=== PATIENT | female | born 1985 | race Caucasian/White ===

== ENCOUNTER 2016-11-23 20:00 | Emergency (ER) | payer OTHER ==
[~2016-11-23] VITALS: Ht 170.2 cm; Wt 95.0 kg
[~2016-11-23 20:00] MED LIST: AMOX/K CLAV875 M1 PO; AURALGAN OT; CEFUROXIME250 MG PO; FLOXIN OTIC0.3 % OT; LORTAB 1010 MG PO; NAPROSYN500 MG PO; NEOMYCIN/POLYMY1 SOL
[2016-11-23] MEDS ORDERED: PROTONIX40 M2 PO (20:22)
[2016-11-23] MEDS ORDERED: RANITIDINE150 M1 PO (20:23)
[2016-11-23] MEDS ORDERED: VITAMIN D350000 UNIT PO (20:24)
[2016-11-23 20:40] LABS: HEMATOCRIT 41.6 % (37.0-47.0); HEMOGLOBIN 14.6 g/dl (12.0-16.0); IMMATURE GRANULOCYTES 0.5 % (0.0-1.0); MEAN CORPUSCULAR HGB 31.6 pG CALC (26.0-32.0); MEAN CORPUSCULAR HGB CONC 35.1 g/L CALC (32.0-36.0); NEUT# 6.58 thou/uL (2.00-7.15); RED BLOOD COUNT 4.62 mill/uL (4.20-5.60); RED CELL DISTRI WIDTH 11.9 % (11.5-15.5)
[2016-11-23 20:55] LABS: ALBUMIN 4.6 g/dL (3.2-5.0); ALKALINE PHOSPHATASE 80 u/l (38-126); ANION GAP 17 (6-22 (CALC)); BILIRUBIN, TOTAL 0.3 mg/dL (0.0-1.4); BUN 12 mg/dL (7-17); BUN/CREATININE RATIO 14 (12-20 (CALC)); CALCIUM 9.4 mg/dL (8.4-10.2); CARBON DIOXIDE 24 mmol/l (22-30); CHLORIDE 104 mmol/l (95-108); CREATININE 0.9 mg/dL (0.5-1.0); GFR > 60 ML/MIN (>=60 (CALC)); GFR FOR AFR.AMER. > 60 ML/MIN (>=60 (CALC)); GLUCOSE 112 mg/dL (65-105); SGOT/AST 19 u/l (14-36); SGPT/ALT 43 u/l (9-52); SODIUM 141 mmol/l (137-146); TOTAL PROTEIN 7.8 g/dL (6.3-8.2)
[2016-11-23 20:59] LABS: PROTHROMBIN TIME 10.5 SECONDS (9.0-12.5)
[2016-11-23 21:06] LABS: MYOGLOBIN 23 ng/mL (0 - 62)
[2016-11-23 21:28] LABS: URINE BILIRUBIN - DIPSTICK NEGATIVE (NEGATIVE); URINE BLOOD DIPSTICK NEGATIVE (NEGATIVE); URINE CLARITY CLEAR; URINE COLOR YELLOW; URINE GLUCOSE - DIPSTICK NEGATIVE (NEGATIVE); URINE KETONE NEGATIVE (NEGATIVE); URINE LEUK ESTERASE NEGATIVE (NEGATIVE); URINE NITRITE - DIPSTICK NEGATIVE (Negative); URINE PROTEIN - DIPSTICK NEGATIVE (NEG-TRACE); URINE UROBILINOGEN - DIPSTICK 0.2 E.U./dL (0.2)
[2016-11-23 23:05] VITALS: BP 96/56
== END 2016-11-23 23:10 | disposition left against medical advice (07) | DRG 313 ==
LOC: ED 20:00
PROVIDERS: Emergency Medicine
DX: R07.9 Chest pain, unspecified (principal); F41.9 Anxiety disorder, unspecified; K21.9 Gastro-esophageal reflux disease without esophagitis; Z91.19 Patient's noncompliance with other medical treatment and regimen

== ENCOUNTER 2019-04-24 | Emergency (ER) | payer OTHER ==
[~2019-04-24] MED LIST changes: +PROTONIX40 M2 PO; +RANITIDINE150 M1 PO; +VITAMIN D350000 UNIT PO
== END 2019-04-24 21:15 | disposition home or self-care (01) | DRG 605 ==
DX: S90.02XA Contusion of left ankle, initial encounter (principal); S90.01XA Contusion of right ankle, initial encounter; S90.32XA Contusion of left foot, initial encounter; S90.31XA Contusion of right foot, initial encounter; W01.0XXA Fall on same level from slipping, tripping and stumbling without subsequent striking against object, initial encounter; Y92.481 Parking lot as the place of occurrence of the external cause

== ENCOUNTER 2019-10-13 14:57 | Emergency (ER) | payer OTHER ==
[~2019-10-13] VITALS: Ht 170.2 cm; Wt 100.0 kg
[2019-10-13 16:55] LABS: HCG SERUM/URINE (NEG/POS) NEGATIVE (NEGATIVE)
[2019-10-13] MEDS ORDERED: ALPRAZOLAM1 MG PO (16:56)
[2019-10-13] MEDS ORDERED: OMEPRAZOLE DR40 MG PO (16:57)
[2019-10-13] MEDS ORDERED: AMOX/K CLAV875 M1 PO (17:56)
[2019-10-13] MEDS ORDERED: VENTOLIN HFA IN (17:56)
[2019-10-13] MEDS ORDERED: ZITHROMAX250 MG PO (17:56)
[2019-10-13 18:00] VITALS: BP 95/58
== END 2019-10-13 18:07 | disposition home or self-care (01) | DRG 203 ==
LOC: ED 14:57
DX: J40 Bronchitis, not specified as acute or chronic (principal); J32.9 Chronic sinusitis, unspecified; Z20.828 Contact with and (suspected) exposure to other viral communicable diseases

== ENCOUNTER 2020-03-23 17:13 | Emergency (ER) | payer OTHER ==
[~2020-03-23] VITALS: Ht 170.2 cm; Wt 93.2 kg
[~2020-03-23 17:13] MED LIST changes: +ALPRAZOLAM1 MG PO; +OMEPRAZOLE DR40 MG PO; +VENTOLIN HFA IN; +ZITHROMAX250 MG PO
[2020-03-23] MEDS ORDERED: CARAFATE1 GM PO (17:38)
[2020-03-23 18:37] VITALS: BP 146/67
== END 2020-03-23 18:41 | disposition home or self-care (01) | DRG 538 ==
LOC: ED 17:13
DX: S76.911A Strain of unspecified muscles, fascia and tendons at thigh level, right thigh, initial encounter (principal); F41.9 Anxiety disorder, unspecified; W22.09XA Striking against other stationary object, initial encounter; Y92.89 Other specified places as the place of occurrence of the external cause; Y99.0 Civilian activity done for income or pay

== ENCOUNTER 2020-06-13 07:18 | Emergency (ER) | payer OTHER ==
[~2020-06-13] VITALS: Ht 170.2 cm; Wt 93.0 kg
[~2020-06-13 07:18] MED LIST changes: +CARAFATE1 GM PO
[2020-06-13 07:59] LABS: HEMOGLOBIN 14.6 g/dl (12.0-16.0); IMMATURE GRANULOCYTES 0.1 % (0.0-5.0); MEAN CELL VOLUME 90.7 fL CALC (80.0-100.0); MEAN CORPUSCULAR HGB 30.8 pG CALC (26.0-32.0); NEUT# 3.84 thou/uL (2.00-7.15); RED BLOOD COUNT 4.74 mill/uL (4.20-5.60); RED CELL DISTRI WIDTH 11.8 % (11.5-15.5)
[2020-06-13 08:03] LABS: ALBUMIN 4.8 g/dL (3.2-5.0); ALKALINE PHOSPHATASE 67 u/l (38-126); ANION GAP 16 (6-22 (CALC)); BUN 10 mg/dL (7-17); BUN/CREATININE RATIO 14 (12-20 (CALC)); CARBON DIOXIDE 23 mmol/l (22-30); CHLORIDE 102 mmol/l (95-108); CREATININE 0.7 mg/dL (0.5-1.0); GFR > 60 ML/MIN (>=60 (CALC)); GFR FOR AFR.AMER. > 60 ML/MIN (>=60 (CALC)); POTASSIUM 3.9 mmol/l (3.5-5.1); SGOT/AST 24 u/l (14-36); SODIUM 137 mmol/l (137-146); TOTAL PROTEIN 7.7 g/dL (6.3-8.2)
[2020-06-13 08:11] LABS: BILIRUBIN, TOTAL 0.9 mg/dL (0.0-1.4)
[2020-06-13 08:16] LABS: MYOGLOBIN 16 ng/mL (0 - 62)
[2020-06-13 08:20] LABS: URINE BILIRUBIN - DIPSTICK NEGATIVE (NEGATIVE); URINE BLOOD DIPSTICK NEGATIVE (NEGATIVE); URINE COLOR YELLOW; URINE GLUCOSE - DIPSTICK NEGATIVE (NEGATIVE); URINE KETONE NEGATIVE (NEGATIVE); URINE LEUK ESTERASE NEGATIVE (NEGATIVE); URINE NITRITE - DIPSTICK NEGATIVE (Negative); URINE PROTEIN - DIPSTICK NEGATIVE (NEG-TRACE); URINE SPECIFIC GRAVITY 1.015; URINE UROBILINOGEN - DIPSTICK 0.2 E.U./dL (0.2)
[2020-06-13] MEDS ORDERED: DEXILANT60 MG PO (08:33)
[2020-06-13] MEDS ORDERED: PAROXETINE10 MG PO (08:33)
[2020-06-13] MEDS ORDERED: LORAZEPAM0.5 MG PO (08:34)
[2020-06-13 08:35] LABS: TSH, 3RD GENERATION 2.09 uIU/mL (0.47 - 4.68)
[2020-06-13 08:55] VITALS: BP 116/68
== END 2020-06-13 08:55 | disposition home or self-care (01) | DRG 880 ==
LOC: ED 07:18
PROVIDERS: Emergency Medicine
DX: F41.9 Anxiety disorder, unspecified (principal); K21.9 Gastro-esophageal reflux disease without esophagitis

== ENCOUNTER 2020-11-06 20:53 | Emergency (ER) | payer OTHER ==
[~2020-11-06] VITALS: Ht 172.7 cm; Wt 97.7 kg
[~2020-11-06 20:53] MED LIST changes: +DEXILANT60 MG PO; +LORAZEPAM0.5 MG PO; +PAROXETINE10 MG PO
[2020-11-06] MEDS ORDERED: ESCITALOPRAM OX10 MG PO (21:21)
[2020-11-06] MEDS ORDERED: AUGMENTIN500TAB PO (21:21)
[2020-11-06 21:29] LABS: HEMATOCRIT 41.9 % (37.0-47.0); IMMATURE GRANULOCYTES 0.2 % (0.0-5.0); MEAN CELL VOLUME 93.9 fL CALC (80.0-100.0); MEAN CORPUSCULAR HGB 31.4 pG CALC (26.0-32.0); MEAN CORPUSCULAR HGB CONC 33.4 g/dL CAL (32.0-36.0); NEUT# 4.58 thou/uL (2.00-7.15); RED BLOOD COUNT 4.46 mill/uL (4.20-5.60); RED CELL DISTRI WIDTH 11.9 % (11.5-15.5)
[2020-11-06 21:37] LABS: ALBUMIN 4.4 g/dL (3.2-5.0); ALKALINE PHOSPHATASE 70 u/l (38-126); AMYLASE 82 u/l (30-110); ANION GAP 12 (6-22 (CALC)); BILIRUBIN, TOTAL 0.5 mg/dL (0.0-1.4); BUN 15 mg/dL (7-17); BUN/CREATININE RATIO 18 (12-20 (CALC)); CARBON DIOXIDE 27 mmol/l (22-30); CHLORIDE 101 mmol/l (95-108); CREATININE 0.9 mg/dL (0.5-1.0); GFR > 60 ML/MIN (>=60 (CALC)); GFR FOR AFR.AMER. > 60 ML/MIN (>=60 (CALC)); LIPASE 125 u/l (23-300); POTASSIUM 3.9 mmol/l (3.5-5.1); SGOT/AST 22 u/l (14-36); SODIUM 137 mmol/l (137-146); TOTAL PROTEIN 7.9 g/dL (6.3-8.2)
[2020-11-06 21:49] LABS: MYOGLOBIN 21 ng/mL (0 - 62)
[2020-11-06 21:59] LABS: D-DIMER 0.27 mg/L (0.19-0.60)
[2020-11-06 22:04] LABS: ACT PARTIAL THROMBO TIME 25.4 SECONDS (20.0-32.5); PROTHROMBIN TIME 10.8 SECONDS (9.0-12.5)
[2020-11-06] MEDS ORDERED: TORADOL PO (22:25)
[2020-11-06 23:06] VITALS: BP 109/58
== END 2020-11-06 23:15 | disposition home or self-care (01) | DRG 313 ==
LOC: ED 20:53
PROVIDERS: Family Medicine
DX: R07.89 Other chest pain (principal); K21.9 Gastro-esophageal reflux disease without esophagitis; F41.9 Anxiety disorder, unspecified

== ENCOUNTER 2021-01-01 12:21 | Emergency (ER) | payer OTHER ==
[~2021-01-01] VITALS: Ht 172.7 cm; Wt 100.0 kg
[~2021-01-01 12:21] MED LIST changes: +AUGMENTIN500TAB PO; +ESCITALOPRAM OX10 MG PO; +TORADOL PO
[2021-01-01 14:30] VITALS: BP 123/79
== END 2021-01-01 15:03 | disposition home or self-care (01) | DRG 203 ==
LOC: ED 12:21
DX: J40 Bronchitis, not specified as acute or chronic (principal); B34.9 Viral infection, unspecified; K21.9 Gastro-esophageal reflux disease without esophagitis; F41.9 Anxiety disorder, unspecified; Z20.822 Contact with and (suspected) exposure to COVID-19

== ENCOUNTER 2021-04-25 11:22 | Emergency (ER) | payer OTHER ==
[~2021-04-25] VITALS: Ht 172.7 cm; Wt 85.0 kg
[2021-04-25 12:00] VITALS: BP 129/75
== END 2021-04-25 12:45 | disposition left against medical advice (07) | DRG 551 ==
LOC: ED 11:22
DX: M54.2 Cervicalgia (principal); U07.1 COVID-19; K21.9 Gastro-esophageal reflux disease without esophagitis; F41.9 Anxiety disorder, unspecified; Z91.19 Patient's noncompliance with other medical treatment and regimen

== ENCOUNTER 2022-12-05 05:43 | Emergency (ER) | payer OTHER ==
[~2022-12-05] VITALS: Ht 172.7 cm; Wt 116.0 kg
[2022-12-05] VITALS (14 sets, daily range): BP systolic 120–155; BP diastolic 57–85
[2022-12-05] MEDS ORDERED: OLMESARTAN MEDOX5 MG PO (05:59)
[2022-12-05] MEDS ORDERED: ROPINIROLE1 MG PO (05:59)
[2022-12-05] MEDS ORDERED: CYMBALTA60 MG PO (06:01)
[2022-12-05] MEDS ORDERED: ZITHROMAX250 MG PO (06:02)
[2022-12-05] MEDS ORDERED: MEDDOSEPAK PO (06:02)
[2022-12-05] MEDS ORDERED: BENZONATATE200 MG PO (06:03)
[2022-12-05 06:35] LABS: BASO% 0.3 % (0-3); EOS% 0.2 % (0-8); HEMATOCRIT 42.7 % (37.0-47.0); HEMOGLOBIN 14.8 g/dl (12.0-16.0); IMMATURE GRANULOCYTES 0.2 % (0.0-5.0); LYMPH% 15.3 % (15-41); MEAN CELL VOLUME 90.9 fL CALC (80.0-100.0); MEAN CORPUSCULAR HGB 31.5 pG CALC (26.0-32.0); MEAN CORPUSCULAR HGB CONC 34.7 g/dL CAL (32.0-36.0); MONO% 2.2 % (2-13); NEUT# 9.59 thou/uL (2.00-7.15); NEUT% 81.8 % (42-76); RED BLOOD COUNT 4.7 mill/uL (4.20-5.60); RED CELL DISTRI WIDTH 11.7 % (11.5-15.5)
[2022-12-05 06:44] LABS: ALBUMIN 4.7 g/dL (3.2-5.0); ALKALINE PHOSPHATASE 95 u/l (38-126); BILIRUBIN, TOTAL 0.5 mg/dL (0.02-1.3); BUN 12 mg/dL (7-17); BUN/CREATININE RATIO 18 (12-20 (CALC)); CARBON DIOXIDE 23 mmol/l (22-30); CHLORIDE 103 mmol/l (95-108); CREATININE 0.7 mg/dL (0.5-1.0); GFR FOR AFR.AMER. > 60 ML/MIN (>=60 (CALC)); GFR OTHER RACES > 60 ML/MIN (>=60 (CALC)); MAGNESIUM 2.1 mg/dL (1.6-2.3); SGOT/AST 27 u/l (14-36); SODIUM 137 mmol/l (137-146); TOTAL PROTEIN 8.2 g/dL (6.3-8.2)
[2022-12-05 06:46] LABS: ANION GAP 15 (6-22 (CALC)); POTASSIUM 3.9 mmol/l (3.5-5.1)
[2022-12-05 06:59] LABS: D-DIMER 0.34 mg/L (0.19-0.60)
[2022-12-05 07:02] LABS: ACT PARTIAL THROMBO TIME 27.2 SECONDS (20.0-32.5); INTERNATIONAL NORMALIZED RATIO 1.1 RATIO (0.7-1.3); PROTHROMBIN TIME 10.1 SECONDS (9.0-12.5)
[2022-12-05 07:53] LABS: URINE BILIRUBIN - DIPSTICK Negative (NEGATIVE); URINE BLOOD DIPSTICK Negative (NEGATIVE); URINE GLUCOSE - DIPSTICK Negative (NEGATIVE); URINE KETONE Negative (NEGATIVE); URINE LEUK ESTERASE Negative (NEGATIVE); URINE NITRITE - DIPSTICK Negative (Negative); URINE PROTEIN - DIPSTICK Negative (NEG-TRACE); URINE UROBILINOGEN - DIPSTICK 0.2 E.U./dL (0.2)
[2022-12-05 07:58] LABS: URINE COLOR Yellow
== END 2022-12-05 10:35 | disposition home or self-care (01) | DRG 310 ==
LOC: ED 05:43
PROVIDERS: Family Medicine
DX: I47.1 Supraventricular tachycardia (principal); I10 Essential (primary) hypertension; F41.9 Anxiety disorder, unspecified; K21.9 Gastro-esophageal reflux disease without esophagitis; M79.7 Fibromyalgia; Z20.822 Contact with and (suspected) exposure to COVID-19

== ENCOUNTER 2023-05-13 12:40 | Emergency (ER) | payer OTHER ==
[~2023-05-13] VITALS: Ht 172.7 cm; Wt 104.0 kg
[2023-05-13] VITALS (13 sets, daily range): BP systolic 105–133; BP diastolic 53–79
[~2023-05-13 12:40] MED LIST changes: +BENZONATATE200 MG PO; +CYMBALTA60 MG PO; +MEDDOSEPAK PO; +OLMESARTAN MEDOX5 MG PO; +ROPINIROLE1 MG PO
[2023-05-13 13:39] LABS: BASO% 0.5 % (0-3); HEMATOCRIT 41.2 % (37.0-47.0); HEMOGLOBIN 14.3 g/dl (12.0-16.0); LYMPH% 32.9 % (15-41); MEAN CELL VOLUME 91.2 fL CALC (80.0-100.0); MEAN CORPUSCULAR HGB 31.6 pG CALC (26.0-32.0); MEAN CORPUSCULAR HGB CONC 34.7 g/dL CAL (32.0-36.0); MONO% 6.6 % (2-13); NEUT# 3.64 thou/uL (2.00-7.15); RED BLOOD COUNT 4.52 mill/uL (4.20-5.60); RED CELL DISTRI WIDTH 12.2 % (11.5-15.5)
[2023-05-13 13:39] LABS: URINE BILIRUBIN - DIPSTICK Negative (NEGATIVE); URINE BLOOD DIPSTICK Negative (NEGATIVE); URINE COLOR Yellow; URINE GLUCOSE - DIPSTICK Negative (NEGATIVE); URINE KETONE Negative (NEGATIVE); URINE LEUK ESTERASE Negative (NEGATIVE); URINE NITRITE - DIPSTICK Negative (Negative); URINE PH 5.5 (4.5-8.0); URINE PROTEIN - DIPSTICK Negative (NEG-TRACE); URINE SPECIFIC GRAVITY 1.025; URINE UROBILINOGEN - DIPSTICK 0.2 E.U./dL (0.2)
[2023-05-13 13:52] LABS: ALBUMIN 4.9 g/dL (3.2-5.0); ALKALINE PHOSPHATASE 66 u/l (38-126); ANION GAP 15 (6-22 (CALC)); BUN 10 mg/dL (7-17); BUN/CREATININE RATIO 13 (12-20 (CALC)); CARBON DIOXIDE 23 mmol/l (22-30); CHLORIDE 105 mmol/l (95-108); CREATININE 0.7 mg/dL (0.5-1.0); GFR FOR AFR.AMER. > 60 ML/MIN (>=60 (CALC)); GFR OTHER RACES > 60 ML/MIN (>=60 (CALC)); LIPASE 131 u/l (23-300); POTASSIUM 4.2 mmol/l (3.5-5.1); SGOT/AST 27 u/l (14-36); SODIUM 139 mmol/l (137-146); TOTAL PROTEIN 7.6 g/dL (6.3-8.2)
[2023-05-13 13:55] LABS: BILIRUBIN, TOTAL 0.8 mg/dL (0.02-1.3)
[2023-05-13] MEDS ORDERED: MIRALAX17 GM PO (17:16)
[2023-05-13] MEDS ORDERED: TRAMADOL HYDROC50 M1 PO (17:16)
[2023-05-13] MEDS ORDERED: DICYCLOMINE HYD10 MG PO (17:16)
== END 2023-05-13 17:40 | disposition home or self-care (01) | DRG 392 ==
LOC: ED 12:40
PROVIDERS: Nurse Practitioner
DX: K59.00 Constipation, unspecified (principal); I10 Essential (primary) hypertension; K21.9 Gastro-esophageal reflux disease without esophagitis; F41.9 Anxiety disorder, unspecified; M79.7 Fibromyalgia

== ENCOUNTER 2024-03-07 07:24 | Emergency (ER) | payer OTHER ==
[~2024-03-07] VITALS: Ht 172.7 cm; Wt 85.0 kg
[2024-03-07] VITALS (8 sets, daily range): BP systolic 106–112; BP diastolic 59–71
[~2024-03-07 07:24] MED LIST changes: +DICYCLOMINE HYD10 MG PO; +MIRALAX17 GM PO; +TRAMADOL HYDROC50 M1 PO
[2024-03-07] MEDS ORDERED: ASPIRIN 81 MG/TAB PO ONE (07:35)
[2024-03-07] MEDS ORDERED: ONDANSETRON HCl 4 MG/2 ML SDV IV ONE (07:40)
[2024-03-07] MEDS ORDERED: LEXAPRO10 MG PO (07:54)
[2024-03-07] MEDS ORDERED: CARDIZEM LA180 M1 (07:58)
[2024-03-07 08:06] LABS: HCG SERUM/URINE (NEG/POS) NEGATIVE (NEGATIVE)
[2024-03-07 08:06] LABS: ALBUMIN 4.5 g/dL (3.2-5.0); BILIRUBIN, TOTAL 0.6 mg/dL (0.02-1.3); CREATININE 0.7 mg/dL (0.5-1.0); POTASSIUM 4.4 mmol/l (3.5-5.1); TOTAL PROTEIN 7.6 g/dL (6.3-8.2)
[2024-03-07 08:07] LABS: BASO% 0.5 % (0-3); EOS% 2.2 % (0-8); HEMATOCRIT 43.7 % (37.0-47.0); HEMOGLOBIN 14.8 g/dl (12.0-16.0); IMMATURE GRANULOCYTES 0.2 % (0.0-5.0); LYMPH% 32.1 % (15-41); MEAN CELL VOLUME 93.6 fL CALC (80.0-100.0); MEAN CORPUSCULAR HGB 31.7 pG CALC (26.0-32.0); MEAN CORPUSCULAR HGB CONC 33.9 g/dL CAL (32.0-36.0); MONO% 6.8 % (2-13); NEUT# 3.23 thou/uL (2.00-7.15); NEUT% 58.2 % (42-76); RED BLOOD COUNT 4.67 mill/uL (4.20-5.60); RED CELL DISTRI WIDTH 11.8 % (11.5-15.5)
[2024-03-07] MEDS ORDERED: KETOROLAC TROMETHAMINE 15 MG/ML SDV IV ONE (08:20)
[2024-03-07] MEDS ORDERED: ONDANSETRON 4 MG/TAB ODT PO ONE (09:00)
[2024-03-07] MEDS ORDERED: MORPHINE SULFATE 4 MG/ML VIAL IV ONE (09:00)
[2024-03-07] MEDS ORDERED: Iopamidol 370 (Isovue) 76% 100 ML SDV IV ONE (09:00)
[2024-03-07] MEDS ORDERED: methylPREDNISolone SODIUM SUCC 125 MG/2 ML SDV IV ONE (09:10)
[2024-03-07] MEDS ORDERED: DiphenhydrAMINE HCL 50 MG/ML SDV IV ONE (09:10)
[2024-03-07] MEDS ORDERED: NAPROXEN500 MG PO (11:32)
[2024-03-07] MEDS ORDERED: TANLOR1000 MG PO (11:32)
== END 2024-03-07 12:01 | disposition home or self-care (01) | DRG 313 ==
LOC: ED 07:24
PROVIDERS: Family Medicine
DX: R07.9 Chest pain, unspecified (principal); M54.6 Pain in thoracic spine; M54.2 Cervicalgia; I10 Essential (primary) hypertension; K31.9 Disease of stomach and duodenum, unspecified; F41.9 Anxiety disorder, unspecified; M79.7 Fibromyalgia
CPT/HCPCS: Q9967